=== PATIENT | male | born 1965 | race Caucasian/White ===

== ENCOUNTER 2016-09-06 09:12 | Emergency (ER) | payer MEDICAID | END 2016-09-06 11:24 | disposition home or self-care (01) | LOC: ER 09:12 | CPT/HCPCS: 71020; 72050 ==

== ENCOUNTER 2016-10-08 06:30 | Emergency (ER) | payer MEDICAID | END 2016-10-08 08:31 | disposition home or self-care (01) | LOC: ER 06:30 | DX: J20.9 Acute bronchitis, unspecified (principal); R13.10 Dysphagia, unspecified; F17.200 Nicotine dependence, unspecified, uncomplicated | CPT/HCPCS: 71020 ==